=== PATIENT | female | born 1955 | race Caucasian/White ===

== ENCOUNTER 2019-09-16 14:54 | Emergency (ER) | payer BC ==
[2019-09-16] MEDS ORDERED: TETANUS/DIPHTHERIA/PERTUSSIS 0.5 ML SYRINGE IM ONE (16:25)
--- NOTE | 2019-09-16 16:29 | ED Physician Documentation ---
History of Present Illness - Stated complaint Stated Complaint: JAW PX, CHIN LAC - Chief complaint Chief Complaint: Trauma Hd/Nk - History obtained from History obtained from: Patient - History of Present Illness Timing: Prior to arrival, How many hours ago (3) - Additonal information Additional information: 64-year-old female presents to the emergency department for evaluation of right jaw pain and a chin laceration aftera mechanical fall this afternoon. She was walking tripped on the ground and fell forward on concrete striking her jaw. However she felt a pop or crack in her right upper jaw. She does wear dentures and does not feel that they are fitting correctly now. She does have mild trismus and tenderness at the right TMJ She had no loss of consciousness and does not take blood thinners. Unknown last tetanus Review of Systems Constitutional: denies: Fever, Chills Eyes: denies: Loss of vision, Decreased vision Ears: denies: Loss of hearing, Ear pain, Drainage/discharge Nose: denies: Rhinorrhea / runny nose Throat: reports: Other Respiratory: reports: Hemoptysis (Mild trismus. Tenderness at right TMJ. Patient does not appear to have malocclusion but she reports that her dentures do not fit correctly anymore.) GI: denies: Abdominal Pain, Abdominal Swelling, Nausea, Vomiting : denies: Dysuria, Frequency Skin: reports: Laceration (s) (chin) PD PAST MEDICAL HISTORY - Present Medications Home Medications: Ambulatory Orders Medication Instructions Recorded Confirmed HYDROcod/ACET 5/325 Prepack 4 1 bottle PO ONCE #4 bottle 09/16/19 [NORCO 5/325 Prepack 4] Hydrocodone/Acetaminophen [[place] 1 each PO TID PRN #20 tablet 09/16/19 5-325 Tablet] Ibuprofen [Motrin] 600 mg PO Q6H PRN #30 tab 09/16/19 - Allergies Allergies/Adverse Reactions: Allergies Allergy/AdvReac Type Severity Reaction Status Date / Time No Known Drug Allergies Allergy Verified 09/16/19 15:08 PD ED PE EXPANDED - General General: Alert, No acute distress, In Pain - HEENT HEENT: Pharynx normal, Other (Tenderness at right TMJ. Unable to fully open mouth showing mild trismus. No apparent malocclusion though patient reports that her dentures are not fitting properly. 1 cm midline lack to distal chin). No: R TM bulging, L TM bulging, Right frontal sinus TTP, Left frontal sinus TTP - Cardiac Cardiac: Regular Rate, Radial strong equal, Femoral strong equal, Cap refill < 2 sec - Respiratory Respiratory: Clear to ausultation edinson. No: Distress, Labored - Neuro Neuro: Alert and Oriented X 3, CNII-XII intact, Normal gait, Normal finger nose, Normal speech. No: CN deficit, Aphasia - GCS Eye Opening: Spontaneous Motor: Abnormal Extension Verbal: Oriented Total: 11 Results - Vitals Vitals: Vital Signs - 24 hr 09/16/19 15:08 Temperature 37.7 C H Heart Rate 65 Respiratory 16 Rate Blood Pressure 163/88 H O2 Saturation 97 Oxygen O2 Source Room air - Labs Labs: Laboratory Tests 09/16/19 09/16/19 17:45 17:45 WBC 8.1 RBC 4.13 L Hgb 13.7 Hct 39.7 MCV 96.1 MCH 33.2 H MCHC 34.5 RDW 12.0 Plt Count 180 MPV 11.0 H Neut # (Auto) 6.0 Lymph # (Auto) 1.6 [place] # (Auto) 0.4 Eos # (Auto) 0.0 Baso # (Auto) 0.0 Absolute Nucleated RBC 0.00 Nucleated RBC % 0.0 Sodium 141 Potassium 3.9 Chloride 105 Carbon Dioxide 25 Anion Gap 11.0 BUN 19 Creatinine 1.0 Estimated GFR (MDRD) 56 L Glucose 106 H Calcium 9.8 Total Bilirubin 0.6 AST 20 ALT 21 Alkaline Phosphatase 89 Total Protein 7.8 Albumin 4.8 Globulin 3.0 Albumin/Globulin Ratio 1.6 Lipase 39 Procedures - Laceration (location) chin Length in cm: 1.5 Wound type: Linear Neurovascular status: Sensory intact, Motor intact, Vascular intact Anesthesia: Lidocaine 1% Wound Preparation: Chlorhexadine, Irrigated copiously NS Skin layer closure: Prolene, Size #-0 - enter number (6), Sutures - enter # (5) Other: Patient tolerated well, No complications, Neurovascular intact, Tetanus booster given Complexity: Simple PD MEDICAL DECISION MAKING - ED course Complexity details: reviewed results, d/w patient ED course: 64-year-old female presents to the emergency department with right jaw pain and a mid chin laceration following a ground-level fall this afternoon. - She does have mild trismus of the jaw and tenderness at the right TMJ. There is no apparent malocclusion of her teeth however she does not feel that the dentures are fitting properly anymore. The dentures were taken out and evaluated and we did not see any signs of fracture. - The CT scan showed a comminuted moderately displaced fracture of the right proximal mandibular ramus. I spoke with FS surgeon Dr. hubert Sterling. He has personally evaluated the patient and reviewed the CAT scans. Because of the location and nature of this fracture he does not feel that the patient would be best served by having surgery tonight. Instead he will recommend that she have a liquid diet for the next 6 weeks. He will follow her up in office tomorrow and continue to monitor her. - Patient's chin laceration was closed by this provider at the bedside using 6.0 Prolene. 5 sutures were placed. Sutures are to be removed in 5 to 7 days. Antibiotic ointment - Departure - Departure Disposition: 01 Home, Self Care Clinical Impression: Laceration of chin Qualifiers: Encounter type: initial encounter Qualified Code(s): S01.81XA - Laceration without foreign body of other part of head, initial encounter Mandible fracture Qualifiers: Encounter type: initial encounter Fracture type: closed Mandible location: ramus Laterality: right Qualified Code(s): S02.641A - Fracture of ramus of right mandible, initial encounter for closed fracture Condition: Stable Instructions: ED Fx Mandible Follow-Up: Hubert Sterling DDS [Provider Admit Priv/Credential] - Prescriptions: Ibuprofen [Motrin] 600 mg PO Q6H PRN #30 tab PRN Reason: Pain Hydrocodone/Acetaminophen [[place] 5-325 Tablet] 1 each PO TID PRN #20 tablet PRN Reason: Pain HYDROcod/ACET 5/325 Prepack 4 [NORCO 5/325 Prepack 4] 1 bottle PO ONCE #4 bottle Comments: I am so sorry that you fell and now have a jaw fracture. For the next 6 weeks you need to make sure that you are doing no chewing and minimize your talking. You should comply with a liquid diet. Please call Dr. Sterling office tomorrow for follow-up. The sutures in your chin should be removed in 5 to 7 days. Please gently wash the laceration with warm soap and water pat dry and then apply any antibiotic ointment Take ibuprofen for pain and use the Vicodin or [place] for severe pain only. Do not drive if taking this medication it may make you sleepy. I would also recommend a cool compress or ice pack to the right cheek for 10 minutes 2-3 times a day for the next few days this will help reduce pain and swelling.
[2019-09-16] MEDS ORDERED: HYDROcod/ACETAM 5/325 MG TABLET PO STA (16:40)
--- NOTE | 2019-09-16 17:07 | CT Report ---
PROCEDURE: MAXILLOFACIAL WO INDICATIONS: r/o fx of jaw after fall. ? malocclusion dentures TECHNIQUE: Noncontrast 1.5 mm thick axial images acquired from the mandible through the frontal sinuses, with co shine and sagittal reformatting. For radiation dose reduction, the following was used: automated ex posure control, adjustment of mA and/or kV according to patient size. COMPARISON: None. FINDINGS: Image quality: Excellent. Bones and teeth: There is a moderately displaced, comminuted fracture seen of the right proximal man dibular ramus, which is best demonstrated on coronal images, as on series 6 images 90 through 99. No additional mandibular fracture is seen. No temporomandibular joint dislocation can be seen. Prominent degenerative change can be seen involving the left temporomandibular joint, as on series 6 image 92 and on series 7 image 30 Orbital holden are intact. Sinus holden show no fracture or deformity. Nasal bones and septum are int act. Chronic leftward nasal septal deviation is seen. Zygomatic arches are intact. Pterygoid plates are intact. Visualized portions of the skull base and auditory canals are intact. Sinuses: Paranasal sinuses are aerated, without fluid levels, mucosal thickening, or mucoceles. Mas toid air cells are aerated. There is made of a prominent right-sided lucy bullosa. Soft tissues: No edema, masses, or fluid collections. No enlarged lymph nodes. No soft tissue lace rations or debris. Vascular: Visualized vascular structures appear normal in the absence of contrast. Bony vascular fo ramina and canals are intact. IMPRESSION: Comminuted, moderately displaced fracture of the RIGHT proximal mandibular ramus. No temporomandibular joint dislocation can be seen. Prominent focal degenerative change is seen involving the LEFT temporomandibular joint. Reviewed by: Delgado Herrera MD on 09/16/2019 4:06 PM [facility] Approved by: Delgado Herrera MD on 09/16/2019 4:06 PM STUART Station ID: [id number]
[2019-09-16 18:00] LABS: BASOPHILS % (AUTO) 0.2 %; EOSINOPHILS % (AUTO) 0.5 %; HGB - HEMOGLOBIN 13.7 g/dL (12.0-16.0); LYMPHOCYTES # (AUTO) 1.6 10^3/uL (1.5-3.5); LYMPHOCYTES % (AUTO) 19.7 %; MEAN CORPUSCULAR HEMOGLOBIN 33.2 pg (27.0-31.0); MEAN CORPUSCULAR HGB CONC 34.5 g/dL (32.0-36.0); MEAN CORPUSCULAR VOLUME 96.1 fL (81.0-99.0); MONOCYTES # (AUTO) 0.4 10^3/uL (0.0-1.0); MONOCYTES % (AUTO) 4.8 %; NEUTROPHILS % (AUTO) 74.4 %; PLT - PLATELET COUNT 180 10^3/uL (130-450); RED BLOOD COUNT 4.13 10^6/uL (4.20-5.40); WHITE BLOOD COUNT 8.1 x10^3/uL (4.8-10.8)
[2019-09-16 18:14] LABS: ALBUMIN 4.8 g/dL (3.2-5.5); ALBUMIN/GLOBULIN RATIO 1.6 (1.0-2.2); BILIRUBIN,TOTAL 0.6 mg/dL (0.2-1.0); CALCIUM 9.8 mg/dL (8.5-10.3); TOTAL PROTEIN 7.8 g/dL (6.7-8.2)
[2019-09-16] MEDS ORDERED: BUFFERED LIDOCAINE 10 ML SYRINGE SUBQ STA (19:15)
[2019-09-16] MEDS ORDERED: BACITRACIN ZINC OINT 1 PACKET TOP STA (19:15)
[2019-09-16 19:50] VITALS: BP 159/81
[2019-09-16] MEDS ORDERED: HYDROcod/ACET 5/325 Prepack 4 PO STA (20:03)
--- NOTE | 2019-09-17 12:54 | CONSULTATION NOTE ---
Referring Provider Name of Referring Provider:: Daysi Jerez Consult Date: 09/16/19 Chief Complaint - Chief Complaint Chief Complaint: Jaw Pain History of Present Illness - History Obtained From History obtained from: Patient - History of Present Illness HPI Comment/Other: 64 yo F s/p mechanical GLF. 4 hrs ago she was is [facility] when she stumbled over a small concrete step and struck her face on the ground. She also struck her left knee, but has no guarding injuries on the hands. She did not loose consciousness. She presented to [facility] ER. A CT max/face was taken, demonstrating a R subcondylar fracture. OMFS was consulted for evaluation and management of this fracture. The patient endorses right ear pain, right jaw pain, malocclusion (she wears a full maxillary denture and has a few anterior mandibular teeth remaining). She denies dysphagia, dyspnea, neck pain, vision changes, drainage from the nose or ears, hearing changes, chest pain, loss of consciousness, dizziness, headache. History - Past Medical History Cardiovascular: reports: Hypertension, High cholesterol Respiratory: reports: None Neuro: reports: None Endocrine/Autoimmune: reports: None GI: reports: GERD [employer]: reports: None : reports: None HEENT: reports: None Psych: reports: Depression, Anxiety Musculoskeletal: reports: None Derm: reports: None - Past Surgical History General: reports: Cholecystectomy, Appendectomy - POLST Patient has POLST: No Meds/Allgy - Home Medications Home Medications: Ambulatory Orders Medication Instructions Recorded Confirmed HYDROcod/ACET 5/325 Prepack 4 1 bottle PO ONCE #4 bottle 09/16/19 [NORCO 5/325 Prepack 4] Hydrocodone/Acetaminophen [[place] 1 each PO TID PRN #20 tablet 09/16/19 5-325 Tablet] Ibuprofen [Motrin] 600 mg PO Q6H PRN #30 tab 09/16/19 - Allergies Allergies/Adverse Reactions: Allergies Allergy/AdvReac Type Severity Reaction Status Date / Time No Known Drug Allergies Allergy Verified 09/16/19 15:08 Review of Systems - Constitutional Constitutional: reports: Other (A 14 point review of systems was completed and found to be negative.) Exam - Vital Signs Reviewed Vital Signs: Yes - Physical Exam General Appearance: positive: No acute distress, Alert Eyes Bilateral: positive: PERRL, EOMI ENT: positive: Other (SEU 35mm. Mandible deviates to the R. There is a visible loss of height on the R, although it is minor. There is swelling of the right preauricular area with severe ttp. EACs patent bilaterally with no drainage or blood. There is a 1 cm laceration on the premental soft tissue.) Neck: positive: Nml inspection, Trachea midline Respiratory: positive: Chest non-tender, No respiratory distress Cardiovascular: positive: Regular rate & rhythm Peripheral Pulses: positive: 2+ Abdomen: positive: Non-tender, No distention Back: positive: Nml inspection Skin: positive: Color nml, Warm, Dry Extremities: positive: Non-tender, Full ROM Neurologic/Psychiatric: positive: Oriented x3, CN's nml (2-12) Conclusion/Plan - Diagnosis Diagnosis: Comminuted fracture of the right mandibular subcondyle - Lab Results Fish Bones: 09/16/19 17:45 09/16/19 17:45 - Diagnostic Imaging Results Diagnostic Imaging Results Comments: There is a comminuted fracture of the right mandibular subcondyle. There is loss of vertical height of the ramus. The condyle remains in the fossa. No other fractures noted.
== END 2019-09-16 20:19 | disposition home or self-care (01) ==
LOC: ED 14:54
DX: S02.641A Fracture of ramus of right mandible, initial encounter for closed fracture (principal); S01.81XA Laceration without foreign body of other part of head, initial encounter; W01.198A Fall on same level from slipping, tripping and stumbling with subsequent striking against other object, initial encounter; Y93.01 Activity, walking, marching and hiking; Y92.830 Public park as the place of occurrence of the external cause; Z23 Encounter for immunization; I10 Essential (primary) hypertension
CPT/HCPCS: 12011; 36415; 70486; 80053; 83690; 85025; 90471; 90715; 99284; A9270